=== PATIENT | female | born 1925 | race Native Hawaiian/Other Pacific Islander ===

== ENCOUNTER 2016-10-16 12:40 | Outpatient (CLI) | payer OTHER, MEDICARE ==
[~2016-10-16 12:40] MED LIST: ASA LO-DOSE81 MG OR; BENZ100C8 PO; CENTRUM SILVER OR; CLOP75TA2 PO; CRESTOR5 MG PO; HYDROCOD/HOM1 ML PO; IPRATROPIUM/ IN; LEVAQUIN500 MG OR; LEVO0.0218 PO; LEVO500T PO; LIPITOR20 MG PO; METOPROLOL25 M1 PO; MICRO-K10 MEQ PO; MONTELUKAST SOD10 MG PO; MUCINEX600 MG OR; MULTIVITAMI1 OR; OCUVITE EYE HEALTH F OR; PACERONE200 MG PO; PANT40TA PO; PENNSAID TD; PREVACID30 M1 PO; RANO500T PO; ROPI0.5T; ROSU10TA PO; TIOTCAP2 INH; VITAMIN D-31000 UNIT PO; VITAMIN D1000 UNIT OR; [UNRECOGNIZED DRUG - OTHER] PO
== END 2016-10-16 19:15 | disposition home or self-care (01) ==
LOC: MAMMO 12:40
DX: Z12.31 Encounter for screening mammogram for malignant neoplasm of breast (principal); Z13.820 Encounter for screening for osteoporosis; M85.89 Other specified disorders of bone density and structure, multiple sites
CPT/HCPCS: G0202-TC

== ENCOUNTER 2016-11-05 09:26 | Outpatient (CLI) | payer OTHER, MEDICARE | END 2016-11-05 19:20 | disposition home or self-care (01) | LOC: CT 09:26 | DX: J84.10 Pulmonary fibrosis, unspecified (principal) ==

== ENCOUNTER 2016-11-13 15:03 | Outpatient (CLI) | payer OTHER, MEDICARE ==
[2016-11-13 15:45] LABS: PLATELET COUNT 211 K/uL (152-353)
[2016-11-13 16:37] LABS: POTASSIUM 4.3 mmol/L (3.6-5.2)
== END 2016-11-13 19:47 | disposition home or self-care (01) ==
LOC: LAB 15:03
PROVIDERS: Nurse Practitioner Family
DX: I48.1 Persistent atrial fibrillation (principal); I10 Essential (primary) hypertension; I25.10 Atherosclerotic heart disease of native coronary artery without angina pectoris; J44.9 Chronic obstructive pulmonary disease, unspecified; E03.8 Other specified hypothyroidism; E78.4 Other hyperlipidemia; Z79.899 Other long term (current) drug therapy; E55.9 Vitamin D deficiency, unspecified; Z51.81 Encounter for therapeutic drug level monitoring
CPT/HCPCS: 80053; 80061; 82306; 82607; 83036; 84439; 84443; 85027

== ENCOUNTER 2017-02-13 18:25 | Inpatient (IN) | payer OTHER, MEDICARE ==
[2017-02-13] VITALS (9 sets, daily range): BP systolic 97–128; BP diastolic 50–98; TEMP 98–98.2; Ht 157.5 cm; Wt 69.4 kg
[~2017-02-13] VITALS: Ht 157.5 cm; Wt 69.4 kg
--- NOTE | 2017-02-13 19:30 | NUR ---
RECEIVED PATIENT AT THIS TIME. PARTIAL ASSESSMENT COMPLETED AT THIS TIME. NO FAMILY PRESENT PATIENT STATED HER DAUGHTER WOULD BACK IN A LITTLE BIT. ASKED PATIENT IF SHE COULD TELL ME WHAT HAPPENED TO HER TODAY. PATIENT STATED " I HAVEN'T FELT LIKE THIS BEFORE, I THINK IT WAS THE YARD WORK I WAS DOING." PATIENT STATED SHE WENT TO SEE AND WAS ADVISED UPON BEING ASSESSED AND HAVING A EKG SHE BE ADMITTED TO THE HOSPITAL FOR FURTHER EVALUATION AND TREATMENT. IV 22G STARTED X1 ATTEMPT TO THE LEFT WRIST SALINE LOCKED AT PRESENT TIME. PATIENT IS AOX3.
--- NOTE | 2017-02-13 20:00 | NUR ---
RT HERE. EKG COMPLETED AT THIS TIME. A-FLUTTER 263.
[2017-02-13 20:09] LABS: PLATELET COUNT 193 K/uL (152-353)
--- NOTE | 2017-02-13 20:14 | NUR ---
1ST DOSE OF CARDIZEM 20MG GIVEN IV PUSH OVER 2 MIN. PATIENT TOLERATED WELL. VITAL SIGNS AT THIS TIME.
[2017-02-13 20:23] LABS: POTASSIUM 3.9 mmol/L (3.6-5.2); SODIUM 138 mmol/L (136-145)
--- NOTE | 2017-02-13 20:30 | NUR ---
CALLED WITH NEW ORDERS.
--- NOTE | 2017-02-13 22:00 | NUR ---
HEPARIN DRIP STARTED AT THIS TIME. 12UNITS/KG/HR.
--- NOTE | 2017-02-13 22:15 | NUR ---
CALLED REGARDING PATIENT STATUS. CURRENT HR-[id number]. COMPLETE ASSESSMENT COMPLETED AT THIS TIME.
--- NOTE | 2017-02-13 22:50 | NUR ---
PATIENT SUPERVISED TO [facility]. 700 ML OF CLEAR YELLOW URINE NOTED. URINE COLLECTED AND SENT TO THE LAB ORDERED.
--- NOTE | 2017-02-13 23:50 | NUR ---
HOME MEDICATIONS GIVEN AT THIS TIME.
[2017-02-14] VITALS (14 sets, daily range): BP systolic 93–121; BP diastolic 50–78; TEMP 97.9–98.6
--- NOTE | 2017-02-14 01:00 | NUR ---
PATIENT IS RESTING WITH EYES CLOSED AT THIS TIME.
--- NOTE | 2017-02-14 02:55 | NUR ---
RT HERE FOR EKG- RATE 69- SINUS OR ECTOPIC ATRIAL RHYTHM NOTED.
--- NOTE | 2017-02-14 03:20 | NUR ---
PATIENT ASSSITED TO [facility].
--- NOTE | 2017-02-14 04:40 | NUR ---
ALL LABS COLLECTED AT THIS TIME.
[2017-02-14 05:07] LABS: PLATELET COUNT 188 K/uL (152-353)
[2017-02-14 05:23] LABS: POTASSIUM 3.9 mmol/L (3.6-5.2)
--- NOTE | 2017-02-14 07:00 | NUR ---
REPORT FROM PM STAFF,PT RESTING WITH EYES CLOSED ON. O2 SATS 95% ON RM AIR. FAMILY AT BS.
[2017-02-14] MEDS ORDERED: METO50TA27 PO (08:37)
[2017-02-14] MEDS ORDERED: D3 MAXIMUM5000 UNI1 PO (08:54)
[2017-02-14] MEDS ORDERED: ALBU90AE13 INH (08:56)
[2017-02-14] MEDS ORDERED: OMAX PO (09:00)
--- NOTE | 2017-02-14 09:00 | NUR ---
PT UP & AMBULATED TO BR WITH ASSISTANCE,BM, PERICARE PER SELF. ASSISTED BACK TO BED AFTER.
--- NOTE | 2017-02-14 10:15 | NUR ---
HOME MEDICATIONS CLARIFIED PER HOME MED BOTTLES & PER PHARMACY LIST. REPORTED TO DR CLIFFORD.WILL REVIEW MEDS PT NO LONGER TAKING AMIODORONE.
--- NOTE | 2017-02-14 10:40 | NUR ---
PTT DRAWN. RESULTS 49.5. HEPARIN DRIP REMAINS AT 12.5 UNITS/HR.
--- NOTE | 2017-02-14 11:03 | NUR ---
DR CLIFFORD IN TO SEE PT.
--- NOTE | 2017-02-14 11:10 | NUR ---
ECHO IN PROGRESS PER HERNESTO CALDERÓN BREAK OFF WORKER.
--- NOTE | 2017-02-14 14:30 | NUR ---
BATH & PERSONAL CARE PER SHAHZAD BOB.
--- NOTE | 2017-02-14 15:32 | NUR ---
PT DISCUSSED DNR. INFORMATION OBTAINED FOR PT & FAMILY.REPORT TO MARU RUFFIN RN. PT TRANSFERRED STABLE VIA W/C TO RM 1108.FAMILY AT BS & AWARE.
--- NOTE | 2017-02-14 15:45 | NUR ---
REPORT FROM U RECIEVED. PT TRANSPORTED TO RM 1108 FROM [facility] VIA W/C. ASSESSMENT COMPLETE. TELE APPLIED. IV INTACT, HEPARIN DRIP GOING. PT HAS NO COMPLAINTS AT THIS TIME. NAD NOTED.
[2017-02-15] VITALS: BP 99/67; TEMP 98.1
[2017-02-15 04:00] VITALS: BP 136/65; TEMP 98.1
[2017-02-15 08:00] VITALS: BP 140/75; TEMP 97.8
[2017-02-15 08:32] LABS: PLATELET COUNT 173 K/uL (152-353)
[2017-02-15 12:00] VITALS: BP 112/54; TEMP 97.6
--- NOTE | 2017-02-15 15:30 | NUR ---
PT ALREADY D/C'D OWN IV SITE. DAUGHTER AT BS. D/C INSTRUCTIONS GIVEN. RX ATTACHED.
== END 2017-02-15 15:57 | disposition home or self-care (01) | DRG 310 ==
LOC: ICU 18:25 → MED/SURG 18:25 → ICU 02-14 15:15 → MED/SURG 02-15 15:57
PROVIDERS: ADMIT Internal Medicine
DX: I48.92 Unspecified atrial flutter (principal); I10 Essential (primary) hypertension; K21.9 Gastro-esophageal reflux disease without esophagitis; G47.33 Obstructive sleep apnea (adult) (pediatric); M06.89 Other specified rheumatoid arthritis, multiple sites
CPT/HCPCS: 80048; 80053; 81000; 82550; 83735; 84443; 84484; 85027; 85610; 85730; 93005; 93306; 94760; J1642; J1644; J3490

== ENCOUNTER 2017-08-22 09:15 | Outpatient (CLI) | payer OTHER ==
[~2017-08-22 09:15] MED LIST changes: +ALBU90AE13 INH; +D3 MAXIMUM5000 UNI1 PO; +METO50TA27 PO; +OMAX PO
== END 2017-08-22 23:56 | disposition home or self-care (01) ==
LOC: LAB 09:15
DX: J15.212 Pneumonia due to Methicillin resistant Staphylococcus aureus (principal)
CPT/HCPCS: 80202

== ENCOUNTER 2017-08-26 09:49 | Outpatient (CLI) | payer OTHER ==
[2017-08-26 10:16] LABS: PLATELET COUNT 230 K/uL (152-353)
== END 2017-08-26 20:06 | disposition home or self-care (01) ==
LOC: LAB 09:49
PROVIDERS: Internal Medicine Infectious Disease
DX: J18.8 Other pneumonia, unspecified organism (principal)
CPT/HCPCS: 80048; 80202; 85027

== ENCOUNTER 2017-08-29 10:12 | Outpatient (CLI) | payer OTHER | END 2017-08-29 22:21 | disposition home or self-care (01) | LOC: LAB 10:12 | DX: J15.212 Pneumonia due to Methicillin resistant Staphylococcus aureus (principal); J44.9 Chronic obstructive pulmonary disease, unspecified | CPT/HCPCS: 80202 ==

== ENCOUNTER 2017-09-02 10:39 | Outpatient (CLI) | payer OTHER ==
[2017-09-02 10:53] LABS: PLATELET COUNT 149 K/uL (152-353)
== END 2017-09-02 19:20 | disposition home or self-care (01) ==
LOC: LAB 10:39
PROVIDERS: Internal Medicine Infectious Disease
DX: J15.29 Pneumonia due to other staphylococcus (principal)
CPT/HCPCS: 80048; 80202; 85027

== ENCOUNTER 2017-10-22 14:02 | Outpatient (CLI) | payer OTHER | END 2017-10-22 22:32 | disposition home or self-care (01) | LOC: RAD 14:02 | DX: I50.9 Heart failure, unspecified (principal) ==